=== PATIENT | male | born 1990 | race Caucasian/White ===

== ENCOUNTER 2016-06-17 11:12 | Emergency (ER) | payer BC, OTHER ==
[2016-06-17 11:20] VITALS: BP 112/60; PULSE 78; TEMP 98; BMI 29.8
[2016-06-17] MEDS ORDERED: METOCLOPRAMIDE HCL INJECTION 10 MG/2 ML VIAL ONE (12:06)
[2016-06-17] MEDS ORDERED: KETOROLAC TROMETHAMINE 30 MG/1 ML VIAL ONE (12:06)
[2016-06-17] MEDS ORDERED: KETOROLAC TROMETHAMINE 60 MG/2 ML VIAL IM ONE (12:09)
[2016-06-17] MEDS ORDERED: SODIUM CHLORIDE 1,000 ML IV ONE (12:09)
[2016-06-17] MEDS ORDERED: METOCLOPRAMIDE HCL INJECTION 10 MG/2 ML VIAL IVPUSH ONE (12:11)
--- NOTE | 2016-06-17 12:12 | PDOC ---
History of Present Illness - General Chief Complaint: Headache Stated Complaint: DIZZINESS, HEADACHES Time Seen by Provider: 06/17/16 11:48 History Source: Patient Exam Limitations: No Limitations - History of Present Illness Initial Comments: 06/17/16 12:55 Patient came to emergency department with complaints of headache 4 days. does not suffer from headaches in the past, the onset was when he woke on Tuesday morning and since that time has persisted with minimal relief from ibuprofen. States is generalized not on one side or the other not specific to his particular point. States has some mild photophobia,.Denies numbness or tingling to hands or feet, denies any weakness to either side, denies any mental status changes or behavior changes reported from his friend. Denies Nausea or vomiting. . Has had no fevers, ear or throat pain, body aches associated until this morning where he felt that he had gotten chills and fevers. Patient has never been diagnosed with migraine headaches, has had no recent trauma or illness. However his friend reports that with these symptoms patient continued to attend gym and exercise with a high aerobic activity. 06/17/16 15:16 Timing/Duration: reports: waxing and waning Severity: Yes: moderate Associated Symptoms: reports: denies symptoms, fatigue, fever/chills. denies: confusion, loss of consciousness, muscle spasms, nausea/vomiting, slurred speech , tingling in legs/feet, trouble walking, weakness Past History - Travel Traveled outside of the country in the last 30 days: No Close contact w/someone who was outside of country & ill: No - Past Medical History Allergies/Adverse Reactions: Allergies Allergy/AdvReac Type Severity Reaction Status Date / Time No Known Allergies Allergy Verified 06/17/16 11:20 Home Medications: Ambulatory Orders NK [No Known Home Medication] 06/17/16 Psychiatric Problems: Yes - Psycho/Social/Smoking Cessation Hx Anxiety: No Suicidal Ideation: No Smoking Status: Yes Smoking History: Current some day smoker Number of Cigarettes Smoked Daily: 3 Information on smoking cessation initiated: No Hx Alcohol Use: No Drug/Substance Use Hx: No Substance Use Type: None Hx Substance Use Treatment: No Neuro Specific PMHX - Complaint Specific PMHX Migraine: No Neuropathy: No Review of Systems - Review of Systems Able to Perform ROS?: Yes Is the patient limited Tanzanian proficient: Yes Constitutional: Yes: Symptoms Reported, See HPI, Chills, Malaise. No: Fever HEENTM: Yes: See HPI, Nose Congestion. No: Symptoms Reported, Eye Pain, Recent change in vision (mild photophobia) Respiratory: Yes: See HPI. No: Symptoms reported : No: Symptoms Reported Musculoskeletal: Yes: Symptoms Reported, See HPI Integumentary: Yes: Symptoms Reported, See HPI Neurological: Yes: Symptoms reported, See HPI, Headache All Other Systems: Reviewed and Negative *Physical Exam - Vital Signs Last Vital Signs Temp Pulse Resp BP Pulse Ox 98 F 78 18 112/60 100 06/17/16 11:18 06/17/16 11:18 06/17/16 11:18 06/17/16 11:18 06/17/16 11:18 - Physical Exam General Appearance: Yes: Appropriately Dressed, Apparent Distress HEENT: positive: CASEY, Normal ENT Inspection, TMs Normal, Pharynx Normal (with mild erythema, no exudate). negative: Rhinorrhea, Sinus Tenderness Neck: positive: Supple, Lymphadenopathy (R), Lymphadenopathy (L). negative: Tender Respiratory/Chest: positive: Lungs Clear, Normal Breath Sounds Gastrointestinal/Abdominal: positive: Normal Bowel Sounds, Soft. negative: Tender Musculoskeletal: positive: Muscle Spasm. negative: Normal Inspection Extremity: positive: Normal Capillary Refill, Normal Inspection, Tender Integumentary: positive: Normal Color, Dry, Warm, Pale Neurologic: positive: salesperson women's dresses II-XII NML intact, Fully Oriented, Alert, Normal Mood/ Affect, Normal Response, Motor Strength 5/5 ED Treatment Course - LABORATORY CBC & Chemistry Diagram: 06/17/16 12:49 06/17/16 12:49 Progress Note - Progress Note Progress Note: Headache, probable viral syndrome as patient has no evidence of significant neurologic deficit. Will treat with Reglan, Toradol and IV fluids and reevaluate Medical Decision Making - Medical Decision Making 06/17/16 13:55 Patient much improved after 2 L of IV fluid, Toradol and Reglan. Laboratory work within normal limits ,States headache is primarily gone, color has improved , and feels ready for discharge. Discussed indications for CAT scans and further testing or headache and encourage patient to follow-up with PMD if headaches recur. Reinforced indications for return to emergency department which include changes in the headache pain, unilateral pain, neurologic changes or fevers otherwise will continue to rehydrate and rest 06/17/16 15:21 *DC/Admit/Observation/Transfer Diagnosis at time of Disposition: Viral illness - Discharge Dispostion Disposition: HOME Condition at time of disposition: Stable Admit: No - Referrals Referrals: Manuel Lam MD [Primary Care Provider] - - Patient Instructions Printed Discharge Instructions: DI for Dehydration -- Adult Additional Instructions: Rest, drink lots of fluids: Teas, water, soups, Pedialyte Lots of handwashing and good hygiene Continue [id number] medications for symptomatic relief Tylenol or Motrin for fever and pain Followup with private physician in one to 2 days as needed Return to emergency department for worsened symptoms, fevers, dehydration - Post Discharge Activity Work/School Note: Back to Work
[2016-06-17] MEDS ORDERED: SODIUM CHLORIDE 1,000 ML IV STA (13:01)
[2016-06-17 13:10] LABS: BASOPHIL 0.2 % (0-2.0); EOSINOPHIL 0.1 % (0-4.5); MCH 31.7 pg (25.7-33.7); MCHC 34.5 g/dl (32.0-35.9); MEAN CELL VOLUME 92.1 fl (80-96); MEAN PLT VOLUME 10.3 fl (7.5-11.1); NEUTROPHILS 78.8 % (42.8-82.8); PLATELET COUNT 133 K/MM3 (134-434); RDW 12.8 % (11.9-15.9); WHITE BLOOD COUNT 7.8 K/mm3 (4.0-10.0)
[2016-06-17 13:25] LABS: ALBUMIN 4.9 g/dl (3.4-5.0); ANION GAP 9 (8-16); BILIRUBIN,TOTAL 1.1 mg/dL (0.2-1.0); CALCIUM 9.3 mg/dL (8.5-10.1); CO2 29 mmol/L (21-32); CREATININE 0.9 mg/dL (0.7-1.3); GLUCOSE,RANDOM 100 mg/dL (74-106); SGOT/AST 18 U/L (15-37); SGPT/ALT 23 U/L (12-78); TOT PROT 8.2 g/dl (6.4-8.2)
[2016-06-17 13:26] LABS: ALK PHOS 69 U/L (45-117)
== END 2016-06-17 15:31 | disposition home or self-care (01) ==
LOC: JERFT 11:12
PROC: 3E0337Z Introduction of Electrolytic and Water Balance Substance into Peripheral Vein, Percutaneous Approach (ICD-10-PCS; principal; 2016-06-17)
PROC: 3E033GC Introduction of Other Therapeutic Substance into Peripheral Vein, Percutaneous Approach (ICD-10-PCS; 2016-06-17)
PROC: 3E0233Z Introduction of Anti-inflammatory into Muscle, Percutaneous Approach (ICD-10-PCS; 2016-06-17)
DX: E86.0 Dehydration (principal); B34.9 Viral infection, unspecified
CPT/HCPCS: 36415; 80053; 85025; 99281-25

== ENCOUNTER 2018-03-29 13:38 | Emergency (ER) | payer OTHER ==
[2018-03-29 13:43] VITALS: BP 121/67; PULSE 71; TEMP 98.1; BMI 40.6
--- NOTE | 2018-03-29 14:07 | PDOC ---
History of Present Illness - General Chief Complaint: Injury Stated Complaint: LT ANKLE PAIN Time Seen by Provider: 03/29/18 13:54 History Source: Patient Exam Limitations: Clinical Condition - History of Present Illness Initial Comments: 03/29/18 14:02 Patient with no significant past medical history present with complain of left ankle pain which has been intermittent for the past 2 years and worsening the last 24 hours. Patient reported he twisted his ankle 2 years ago with never completely healed and has been having intermittent swelling and pain to ankle but never had this severe pain to ankle. Patient denies any recent injury or trauma to ankle Timing/Duration: changing over time, other (2 years) Past History - Past Medical History Allergies/Adverse Reactions: Allergies Allergy/AdvReac Type Severity Reaction Status Date / Time No Known Allergies Allergy Verified 03/29/18 13:39 Home Medications: Ambulatory Orders Leg Brace [Ankle Brace] 1 each MC DAILY #1 each 03/29/18 Naproxen 500 mg PO BID PRN #20 tablet 03/29/18 Psychiatric Problems: Yes - Suicide/Smoking/Psychosocial Hx Smoking Status: Yes Smoking History: Former smoker Have you smoked in the past 12 months: No Number of Cigarettes Smoked Daily: 3 Information on smoking cessation initiated: No Hx Alcohol Use: No Drug/Substance Use Hx: No Substance Use Type: None Hx Substance Use Treatment: No Review of Systems - Review of Systems Able to Perform ROS?: Yes Is the patient limited Nauruan proficient: No Constitutional: No: Weakness Respiratory: No: Symptoms reported Cardiac (ROS): No: Symptoms Reported ABD/GI: No: Symptoms Reported Musculoskeletal: Yes: Joint Pain (left ankle), Joint Swelling (left ankle), Muscle Pain (left ankle). No: Muscle Weakness, Joint Stiffness All Other Systems: Reviewed and Negative *Physical Exam - Vital Signs Last Vital Signs Temp Pulse Resp BP Pulse Ox 98.1 F 71 18 121/67 99 03/29/18 13:40 03/29/18 13:40 03/29/18 13:40 03/29/18 13:40 03/29/18 13:40 - Physical Exam Comments: 03/29/18 14:04 GENERAL: Well developed, well nourished. Awake and alert. No acute distress. CARDIOVASCULAR: Regular rate and rhythm. No murmurs, rubs, or gallops. PULMONARY: No evidence of respiratory distress. Lungs clear to auscultation bilaterally. No wheezing, rales or rhonchi. ABDOMINAL: Soft. Non-tender. Non-distended. No rebound or guarding. No organomegaly. Normoactive bowel sounds MUSCULOSKELETAL : Mild tenderness to medial lateral malleolus of left ankle which is worse with eversion of left foot. Mild swelling over lateral malleolus and dorsum of left ankle. Negative anterior-posterior drawer tests of left ankle. SKIN: Warm and dry. Normal capillary refill. No rashes. No jaundice. NEUROLOGICAL: Alert, awake, appropriate. No motor deficits in the lower extremities. Gait is normal without ataxia. PSYCHIATRIC: Cooperative. Good eye contact. Appropriate mood and affect. General Appearance: Yes: Nourished, Appropriately Dressed. No: Apparent Distress ED Treatment Course - RADIOLOGY Radiology Studies Ordered: Category Date Time Status ANKLE & FOOT-LEFT* [RAD] Stat Radiology 03/29/18 13:56 Ordered Medical Decision Making - Medical Decision Making 03/29/18 14:05 Patient presenting with complain left ankle pain status post injury 2 years ago which intermittent pain and swelling to left ankle. Exam significant for mild tenderness over medial lateral malleolus of left ankle with mild swelling. Symptoms likely ankle sprain given no new injury or trauma to ankle. X-ray of left ankle and foot ordered. Patient be discharged home on NSAIDs and ankle brace if negative x-ray. *DC/Admit/Observation/Transfer Diagnosis at time of Disposition: Moderate left ankle sprain Qualifiers: Encounter type: initial encounter Qualified Code(s): S93.402A - Sprain of unspecified ligament of left ankle, initial encounter - Discharge Dispostion Disposition: HOME Condition at time of disposition: Stable Decision to Admit order: No - Prescriptions Prescriptions: Leg Brace [Ankle Brace] 1 each MC DAILY #1 each Naproxen 500 mg PO BID PRN #20 tablet PRN Reason: ankle pain - Referrals Referrals: Merlin Lovett [Primary Care Provider] - Delonte Orozco MD [Staff Physician] - - Patient Instructions Printed Discharge Instructions: DI for Ankle Sprain Additional Instructions: Chest x-ray showed no dislocation or fracture. Take prescribed medication as needed for pain. Wear prescribed ankle brace daily until symptoms resolve. Apply heat and ice as needed for ankle. Follow-up with preferred orthopedics if symptoms persist - Post Discharge Activity
[2018-03-29] MEDS ORDERED: IBUPROFEN 400 MG TABLET (FP) PO ONE ×2 (14:15→14:18)
== END 2018-03-29 14:21 | disposition home or self-care (01) ==
LOC: JERFT 13:38
PROC: 2W3RX1Z Immobilization of Left Lower Leg using Splint (ICD-10-PCS; principal; 2018-03-29)
DX: S93.402A Sprain of unspecified ligament of left ankle, initial encounter (principal); X58.XXXA Exposure to other specified factors, initial encounter; Y93.89 Activity, other specified; Y92.9 Unspecified place or not applicable
CPT/HCPCS: 73610-TC-LT-FY; 73630-TC-LT; 99281-25

== ENCOUNTER 2020-10-17 04:08 | Day surgery (SDC) | payer OTHER ==
[2020-10-16 19:53] VITALS: BMI 47.5
[2020-10-17] MEDS ORDERED: LIDOCAINE HCL/PF 1% SDV 5ML VIAL ONE ×2 (07:10→07:11)
[2020-10-17] MEDS ORDERED: DEXAMETHASONE SOD PHOSPHATE/PF 10 MG/ML SDV ONE ×2 (07:10→07:11)
[2020-10-17] MEDS ORDERED: IOHEXOL 180 MG/1 ML ML IJ ONE ×2 (08:21)
[2020-10-17] MEDS ORDERED: LIDOCAINE HCL 1% PRESERVATIVE FREE - 30ML VIAL NR ONE ×2 (08:22)
[2020-10-17] MEDS ORDERED: DEXAMETHASONE SOD PHOSPHATE 10 MG/1 ML VIAL IM ONE ×2 (08:22)
[2020-10-17 09:26] VITALS: BP 119/79; PULSE 71; TEMP 98.9
== END 2020-10-17 09:05 | disposition home or self-care (01) ==
LOC: JASU-SURG 04:08
PROVIDERS: ATTEND Pain Medicine Pain Medicine
PROC: 3E0R33Z Introduction of Anti-inflammatory into Spinal Canal, Percutaneous Approach (ICD-10-PCS; 2020-10-17)
PROC: B01BYZZ Fluoroscopy of Spinal Cord using Other Contrast (ICD-10-PCS; 2020-10-17)
PROC: 3E0R3BZ Introduction of Anesthetic Agent into Spinal Canal, Percutaneous Approach (ICD-10-PCS; principal; 2020-10-17 08:00)
DX: M54.16 Radiculopathy, lumbar region (principal); M48.061 Spinal stenosis, lumbar region without neurogenic claudication
CPT/HCPCS: 76000-TC-FY; J1100

== ENCOUNTER 2020-11-14 04:19 | Day surgery (SDC) | payer OTHER ==
[2020-11-13 18:31] VITALS: BMI 47.5
[2020-11-14] MEDS ORDERED: DEXAMETHASONE SOD PHOSPHATE 10 MG/1 ML VIAL ONE (07:37)
[2020-11-14] MEDS ORDERED: BUPIVACAINE HCL 50 ML ONE (07:37)
[2020-11-14] MEDS ORDERED: BUPIVACAINE HCL/PF 0.25% (2.5MG/ML) 10 ML VIAL ONE (07:37)
[2020-11-14] MEDS ORDERED: BUPIVACAINE HCL/PF 0.75% 10 ML VIAL ONE (07:38)
[2020-11-14] MEDS ORDERED: LIDOCAINE HCL/PF 1% SDV 5ML VIAL ONE (07:45)
[2020-11-14] MEDS ORDERED: IOHEXOL 180 MG/1 ML ML IJ ONE (10:30)
[2020-11-14] MEDS ORDERED: DEXAMETHASONE SOD PHOSPHATE 10 MG/1 ML VIAL IVPUSH ONE (10:30)
[2020-11-14] MEDS ORDERED: LIDOCAINE HCL 1%, 10 MG/ML (20ML VIAL) INF ONE (10:32)
[2020-11-14 13:06] VITALS: BP 106/60; PULSE 74; TEMP 97.8
== END 2020-11-14 11:15 | disposition home or self-care (01) ==
LOC: JASU-SURG 04:19
PROVIDERS: ATTEND Pain Medicine Pain Medicine
PROC: 3E0R33Z Introduction of Anti-inflammatory into Spinal Canal, Percutaneous Approach (ICD-10-PCS; 2020-11-14)
PROC: 3E0R3BZ Introduction of Anesthetic Agent into Spinal Canal, Percutaneous Approach (ICD-10-PCS; principal; 2020-11-14 12:00)
DX: M54.16 Radiculopathy, lumbar region (principal); M54.5 Low back pain
CPT/HCPCS: 76000-TC-FY; J1100

== ENCOUNTER 2020-11-14 17:30 | Emergency (ER) | payer OTHER ==
[2020-11-14 17:32] VITALS: TEMP 99.1; BMI 47.5
[2020-11-14] MEDS ORDERED: SODIUM CHLORIDE 1,000 ML IV STA (17:55)
[2020-11-14 18:56] LABS: BASO % 0.1 % (0-2.0); HEMATOCRIT 49.8 % (35.4-49); HEMOGLOBIN 17.2 GM/dL (11.7-16.9); LYMPH % 7.7 % (8-40); MCHC 34.6 g/dl (32.0-35.9); MEAN CELL VOLUME 86.7 fl (80-96); MEAN PLT VOLUME 9.9 fl (7.5-11.1); MONO % 0.6 % (3.8-10.2); NEUT % 91.6 % (42.8-82.8); PLATELET COUNT 216 10^3/uL (134-434); RBC 5.75 M/mm3 (4.00-5.60); RDW 13.3 % (11.9-15.9); WHITE BLOOD COUNT 9.7 K/mm3 (4.0-10.0)
[2020-11-14 19:17] LABS: CHLORIDE 102 mmol/L (98-107); SODIUM 137 mmol/L (136-145)
[2020-11-14 19:20] LABS: ANION GAP 8 MMOL/L (8-16); CALCIUM 9.6 mg/dL (8.5-10.1); CO2 28 mmol/L (21-32); GLUCOSE,RANDOM 170 mg/dL (74-106)
[2020-11-14 19:21] LABS: ALBUMIN 4.3 g/dl (3.4-5.0)
[2020-11-14 19:24] LABS: SGOT/AST 29 U/L (15-37); SGPT/ALT 46 U/L (13-61)
[2020-11-14 19:25] LABS: BILIRUBIN,TOTAL 0.5 mg/dL (0.2-1); TOT PROT 8.1 g/dl (6.4-8.2)
[2020-11-14 19:26] LABS: ALK PHOS 91 U/L (45-117)
[2020-11-14 19:27] LABS: ANISOCYTOSIS 1+; MACROCYTOSIS 0; PLATELET ESTIMATE NORMAL
[2020-11-14] MEDS ORDERED: SODIUM CHLORIDE 0.9% 500 ML INFUS.BAG IV ONE (20:04)
[2020-11-14 21:27] VITALS: BP 120/72; PULSE 95
== END 2020-11-14 21:28 | disposition home or self-care (01) ==
LOC: JER 17:30
PROC: 3E0337Z Introduction of Electrolytic and Water Balance Substance into Peripheral Vein, Percutaneous Approach (ICD-10-PCS; principal; 2020-11-14)
DX: R00.2 Palpitations (principal); T50.905A Adverse effect of unspecified drugs, medicaments and biological substances, initial encounter
CPT/HCPCS: 36415; 71045-TC-FY; 80053; 82550; 82553; 83735; 84439; 84443; 84484; 85025; 85379; 93005; 93010; 99285-25

== ENCOUNTER 2024-10-05 06:44 | Day surgery (SDC) | payer OTHER ==
[2024-10-03 15:35] VITALS: BMI 49.5
[2024-10-05] MEDS: LIDOCAINE 1% P/F 10 MG/ML VIAL INF ONE ×2 (10:44→10:51)
[2024-10-05] MEDS: DEXAMETHASONE SOD PHOSPHATE 10 MG/1 ML VIAL IM ONE ×2 (10:44→10:51)
[2024-10-05] MEDS: IOHEXOL 180 MG/1 ML ML IJ ONE ×2 (10:45→10:51)
[2024-10-05 11:25] VITALS: BP 125/79; PULSE 67; RESP 20; TEMP 97.8
[2024-10-05] MEDS ORDERED: ACETAMINOPHEN 500 MG TABLET (FP) PO PRN (14:20)
== END 2024-10-05 11:50 | disposition home or self-care (01) ==
LOC: JASU-SURG 06:44
PROVIDERS: ATTEND Pain Medicine Pain Medicine
PROC: 3E0R3BZ Introduction of Anesthetic Agent into Spinal Canal, Percutaneous Approach (ICD-10-PCS; 2024-10-05)
PROC: 3E0R33Z Introduction of Anti-inflammatory into Spinal Canal, Percutaneous Approach (ICD-10-PCS; principal; 2024-10-05 10:15)
DX: M54.16 Radiculopathy, lumbar region (principal)
CPT/HCPCS: J1100